=== PATIENT | male | born 1985 | race Two or more races ===

== ENCOUNTER 2017-04-13 17:24 | Emergency (ER) | payer MEDICAID ==
[2017-04-13 17:37] VITALS: BP 142/82; PULSE 81; RESP 16; TEMP 98.4; O2SAT 94
[2017-04-13] MEDS ORDERED: IBUPROFEN 600 MG TAB PO ONE (17:48)
[2017-04-13] MEDS ORDERED: IBUPROFEN 200 MG TAB PO ONE (17:48)
[2017-04-13] MEDS ORDERED: DIAZEPAM 5 MG TAB PO ONE (18:03)
[2017-04-13] MEDS ORDERED: LIDOCAINE 5% 1 EA PATCH TD ONE (18:03)
--- NOTE | 2017-04-13 18:08 | EDPHY ---
H & P Stated Complaint: hurt back carrying couch 1130. LBP left side Time Seen by Provider: 04/13/17 17:33 HPI/ROS: CHIEF COMPLAINT: Left low back pain HISTORY OF PRESENT ILLNESS: This is a generally healthy 31-year-old male who had the acute onset of left low back pain while moving a couch this morning. He has been in constant pain since that time. He describes the pain as severe and localized in his left mid to low back. He has tried "cracking "his back by bending side to side, with no relief. He took 3 Tylenol just afternoon today. He has no history of back pain. He denies leg weakness, leg numbness, and bowel or bladder problems. REVIEW OF SYSTEMS: A ten point review of systems was performed and is negative with the exception of the items mentioned in the HPI. Past medical history: Negative Past surgical history: Negative Social history: He smokes 1/2 pack of cigarettes daily. He does not drink alcohol. He has recently moved to this area from [place]. General Appearance: Alert. Vital signs reviewed. Blood pressure 142/82 at triage. Respiratory: Lungs are clear to auscultation; no wheezes, rales, or rhonchi. Cardiovascular: Regular rate and rhythm; no murmur, rub, or gallop. Gastrointestinal: Abdomen is obese, soft and nontender. Skin: Warm and dry, no rashes on exposed skin, normal color. Back: Nontender to palpation over the thoracolumbar spine. Tender to palpation over the left lumbar paraspinous muscles with palpable muscle spasm on the left. Extremities: No lower extremity edema, no calf tenderness or swelling. Neurological: Alert and oriented. Moving all four extremities easily and equally. Strength is 5 over 5 bilaterally with testing of all major motor groups of the lower extremities. Sensation is intact to light touch over both lower extremities. Deep tendon reflexes are 2+ in the knees bilaterally. Gait is normal. Psychiatric: Normal affect. - Personal History Current Tetanus/Diphtheria Vaccine: Unsure Current Tetanus Diphtheria and Acellular Pertussis (TDAP): Unsure - Medical/Surgical History Hx Asthma: No Hx Chronic Respiratory Disease: No Hx Diabetes: No Hx Cardiac Disease: No Hx Renal Disease: No Hx Cirrhosis: No Hx Alcoholism: No Hx HIV/AIDS: No Hx Splenectomy or Spleen Trauma: No Other PMH: Denies - Social History Smoking Status: Heavy smoker Constitutional: Initial Vital Signs Temperature (C) 36.9 C 04/13/17 17:30 Heart Rate 81 04/13/17 17:30 Respiratory Rate 16 04/13/17 17:30 Blood Pressure 142/82 H 04/13/17 17:30 O2 Sat (%) 94 04/13/17 17:30 O2 Delivery Mode Room Air Allergies/Adverse Reactions: No Known Allergies Allergy (Unverified 04/13/17 17:37) Home Medications: Medication Instructions Recorded Diazepam [Valium 5 MG (*)] 5 mg PO TID PRN #15 tab 04/13/17 Lidocaine 5% [Lidoderm 5% Patch 1 ea TD DAILY PRN #7 patch 04/13/17 (*)] Medical Decision Making ED Course/Re-evaluation: Healthy 31-year-old male with acute low back pain and muscle spasm that began after moving a couch this morning. He was given 5 mg of Valium in the emergency department. He was also given ibuprofen 600 mg. In addition, like an patch was applied. Is being discharged home with a prescription for lidocaine patches and Valium. He is advised to continue with Tylenol and ibuprofen. He is referred to primary care physician. Danger signs reviewed with him. He is noted to be hypertensive in the emergency department. He is advised to have this followed up with a primary care physician within the month. Differential Diagnosis: Back pain including but not limited to muscular pain, herniated disc, spine fracture, intra-abdominal causes and urinary tract infection. - Data Points Medications Given: Discontinued Medications Diazepam (Valium) 5 mg PO EDNOW ONE Stop: 04/13/17 18:04 Last Admin: 04/13/17 18:08 Dose: 5 mg Ibuprofen (Motrin) 600 mg PO EDNOW ONE Stop: 04/13/17 17:49 Last Admin: 04/13/17 17:51 Dose: 600 mg Ibuprofen (Motrin) 200 mg PO EDNOW ONE Stop: 04/13/17 17:49 Last Admin: 04/13/17 17:50 Dose: 200 mg Lidocaine (Lidoderm 5%) 1 ea TD EDNOW ONE Stop: 04/13/17 18:04 Last Admin: 04/13/17 18:09 Dose: 1 ea Departure - Departure Disposition: Home, Routine, Self-Care Clinical Impression: Muscle spasm Back pain Qualifiers: Back pain location: low back pain Chronicity: acute Back pain laterality: left Sciatica presence: without sciatica Qualified Code(s): M54.5 - Low back pain Condition: Good Instructions: Acute Low Back Pain (ED), Muscle Spasm (ED) Additional Instructions: Adult Pain & Fever Control: We recommend Acetaminophen (Tylenol) and Ibuprofen (Motrin,Advil) for pain and fever control. When fever is high or pain severe, both drugs can be used at the same time, but at different intervals. Please note the time differences. Your dose is: Acetaminophen [650]mg every 4 to 6 hours Ibuprofen [600]mg every [6] hours with food OR Note: do not take Acetaminophen with Hydrocodone (Vicodin, Lortab) or Oycodone (Percocet). These medications also contain Acetaminophen. No more than 3000mg of Acetaminophen should be taken in 24 hours (for an adult). Use the lidocaine patches as prescribed. You can wear a patch for 12 hours and then take it off. Take the Valium for muscle spasm. You should not operate heavy machinery or engage in other potentially dangerous activities will make taking this medication. It can make you sleepy, off balance, and confused. Do not drink alcohol when taking this medication. I am writing a work excuse for today and tomorrow. If you are continuing with pain you will need to be re-evaluated. I am referring you to a primary care physician. If you develop weakness in your legs, numbness in your legs, or lose control of your bladder was bowels or bladder--you need to be re-evaluated immediately. Referrals: Alicia Worley MD [Medical Doctor] - As per Instructions Stand Alone Forms: Work Excuse Prescriptions: Diazepam [Valium 5 MG (*)] 5 mg PO TID PRN #15 tab PRN Reason: Spasms Lidocaine 5% [Lidoderm 5% Patch (*)] 1 ea TD DAILY PRN #7 patch PRN Reason: back pain
[2017-04-13] MEDS ORDERED: PATCH REMOVAL 1 EA PATCH TD SCH (21:00)
== END 2017-04-13 18:25 | disposition home or self-care (01) ==
LOC: CED 17:24
DX: M62.830 Muscle spasm of back (principal); F17.200 Nicotine dependence, unspecified, uncomplicated